=== PATIENT | male | born 1990 | race Caucasian/White ===

== ENCOUNTER 2019-10-21 09:40 | Emergency (ER) | payer SELFPAY ==
[~2019-10-21] VITALS: Ht 180.3 cm; Wt 79.4 kg
--- NOTE | 2019-10-21 09:40 | NUR ---
Patient BIBA ALS, transferred to bed 4. RN evaluating patient at bedside.
[2019-10-21 09:43] VITALS: BP 131/85
--- NOTE | 2019-10-21 09:47 | NUR ---
PT DOES NOT WANT TO BE SEEN BY MD AND AMBULATED OUT OF FACILITY WITH STEADY GAIT. LEFT WITHOUT BEING SEEN BR DR YOUNG. DR YOUNG MADE AWARE.
[2019-10-21 09:48] VITALS: BP 131/85
== END 2019-10-21 09:47 | disposition left against medical advice (07) ==
LOC: MED 09:40
DX: R07.89 Other chest pain (principal); Z53.21 Procedure and treatment not carried out due to patient leaving prior to being seen by health care provider